=== PATIENT | male | born 1960 ===

== ENCOUNTER 2017-10-01 08:15 | Inpatient (IN) ==
[2017-10-01] MEDS ORDERED: GLUCAGON 1 MG VIAL IM PRN (10:06)
[2017-10-01] MEDS ORDERED: DEXTROSE 50% 25 GM/50 ML VIAL IV PRN (10:06)
[2017-10-01] MEDS ORDERED: ONDANSETRON 4 MG/2 ML VIAL IV PRN (10:06)
[2017-10-01] MEDS ORDERED: LACTULOSE 20 GM/30 ML UDCUP PO PRN (10:06)
[2017-10-01] MEDS ORDERED: DOCUSATE SODIUM 100 MG CAPSULE PO PRN (10:06)
[2017-10-01] MEDS ORDERED: ACETAMINOPHEN 325 MG TABLET PO PRN (10:06)
[2017-10-01 11:01] LABS: Basophils % 0.5 % (0.0-0.8); Eosinophils % 0.3 % (0.00-10.9); Hematocrit 42.4 VOL% (42.0-52.0); Hemoglobin 14.8 GM/DL (14.0-18.0); Immature Granulocytes % 0.3 %; Immature Granulocytes Absolute 0.01 #; Lymphocytes # 1.3 10*3/uL (1.4-4.0); Lymphocytes % 35.7 % (21.2-54.2); Mean Corpuscular HGB Conc 34.9 GM/DL (32-36); Mean Corpuscular Hemoglobin 31 PG (27-34); Mean Corpuscular Volume 88.7 FL (87-102); Mean Platelet Volume 9.3 FL (9.6-12.0); Monocytes # 0.8 10*3/uL (0.11-0.8); Neutrophils # 1.6 10*3/uL (1.4-7.4); Neutrophils % 43.2 % (38.7-73.9); Platelet Count 164 T/CUMM (130-400); Red Blood Count 4.78 MC/CUMM (3.8-5.5); Red Cell Distribution Width 12.8 % (9.3-17.3); White Blood Count 3.8 T/CUMM (4-12)
[2017-10-01 11:21] LABS: Calcium 7.7 MG/DL (8.5-10.1); Osmolality,Calculated 273.7 MOS/KG (273-304); Potassium 3.8 MMOL/L (3.5-5.1)
[2017-10-01] MEDS ORDERED: ENOXAPARIN 40 MG/0.4 ML SYRINGE SUBCUT SCH (12:00)
[2017-10-01 12:15] LABS: Hypochromasia 2+; Lymphocytes 30 % (20-55); Microcytosis 2+; Platelet Estimate Adequate; Segmented Neutrophils 50 % (50-85); Total Cells Counted 100
[2017-10-01] MEDS ORDERED: INFLUENZA VIRUS VACCINE 0.5 ML SYRINGE IM ONE (13:39)
[2017-10-01] MEDS: LEVOFLOXACIN INJ 750 MG in PREMIX 1 EACH IV SCH (15:27)
[2017-10-01] MEDS: INSULIN LISPRO 100 UNIT/ML SUBCUT SCH ×3 (15:28→20:45)
[2017-10-01] MEDS: PANTOPRAZOLE 40 MG TABLET PO SCH (16:55)
[2017-10-02 07:57] LABS: Basophils % 0.6 % (0.0-0.8); Eosinophils # 0.1 10*3/uL (0.0-0.87); Eosinophils % 1.6 % (0.00-10.9); Hemoglobin 14.7 GM/DL (14.0-18.0); Lymphocytes # 1.4 10*3/uL (1.4-4.0); Lymphocytes % 44.5 % (21.2-54.2); Mean Corpuscular HGB Conc 34.2 GM/DL (32-36); Mean Corpuscular Hemoglobin 31 PG (27-34); Mean Platelet Volume 10.2 FL (9.6-12.0); Monocytes # 0.6 10*3/uL (0.11-0.8); Monocytes % 19.2 % (1.7-12.7); Neutrophils # 1.1 10*3/uL (1.4-7.4); Neutrophils % 34.1 % (38.7-73.9); Platelet Count 156 T/CUMM (130-400); Red Blood Count 4.78 MC/CUMM (3.8-5.5); Red Cell Distribution Width 12.7 % (9.3-17.3); White Blood Count 3.2 T/CUMM (4-12)
[2017-10-02 08:28] LABS: Band Neutrophils 2 % (0-10); Hypochromasia Slight; Lymphocytes 33 % (20-55); Platelet Estimate Adequate; Segmented Neutrophils 61 % (50-85); Total Cells Counted 100
[2017-10-02 08:33] LABS: Osmolality,Calculated 274.7 MOS/KG (273-304); Potassium 3.8 MMOL/L (3.5-5.1)
[2017-10-02] MEDS: PANTOPRAZOLE 40 MG TABLET PO SCH (08:34)
[2017-10-02] MEDS: LEVOFLOXACIN INJ 750 MG in PREMIX 1 EACH IV SCH (08:34)
[2017-10-02] MEDS: INSULIN LISPRO 100 UNIT/ML SUBCUT SCH ×3 (08:34→16:45)
[2017-10-02 16:56] VITALS: BP 128/85
[2017-10-02] MEDS ORDERED: DOXYCYCLINE HYCLATE 100 MG CAPSULE PO SCH (21:00)
== END 2017-10-02 18:22 | disposition home or self-care (01) | DRG 195 ==
LOC: N.ED 08:15 → N.EDINP 10:05 → SUATTDRO 10:05 → N.2E 12:30
PROVIDERS: ADMIT Hospitalist; ATTEND Internal Medicine

== ENCOUNTER 2019-08-03 02:14 | Inpatient (IN) ==
[2019-08-03] MEDS ORDERED: SODIUM CHLORIDE 0.9% 1,000 ML IV STA (03:45)
[2019-08-03] MEDS ORDERED: PIPERACILLIN/TAZOBACTAM 3,375 MG in SODIUM CHLORIDE 0.9% 100 ML IV STA (04:25)
[2019-08-03] MEDS ORDERED: PIPERACILLIN/TAZOBACTAM 3,375 MG VIAL IV ONE (04:27)
[2019-08-03] MEDS ORDERED: GLUCAGON 1 MG VIAL IM PRN ×2 (05:49→05:52)
[2019-08-03] MEDS ORDERED: ONDANSETRON 4 MG/2 ML VIAL IV PRN (05:49)
[2019-08-03] MEDS ORDERED: DOCUSATE SODIUM 100 MG CAPSULE PO PRN (05:49)
[2019-08-03] MEDS ORDERED: DEXTROSE 50% 25 GM/50 ML VIAL IV PRN ×2 (05:49→05:52)
[2019-08-03] MEDS ORDERED: ALBUTEROL 2.5 MG/3 ML NEB RESP TX PRN (05:49)
[2019-08-03] MEDS ORDERED: ACETAMINOPHEN 325 MG TABLET PO PRN (05:49)
[2019-08-03] MEDS ORDERED: LORazepam 2 MG/1 ML VIAL IV PRN ×2 (05:55)
[2019-08-03 06:17] LABS: PT Patient Result 10.5 SECS (9.6-12.2)
[2019-08-03] MEDS ORDERED: hydrALAZINE 20 MG/1 ML VIAL IV PRN (06:17)
[2019-08-03 06:34] LABS: Basophils % 0.1 % (0.0-0.8); Hematocrit 41.7 VOL% (42.0-52.0); Hemoglobin 13.7 GM/DL (14.0-18.0); Immature Granulocytes % 0.6 %; Immature Granulocytes Absolute 0.07 #; Lymphocytes # 0.9 10*3/uL (1.4-4.0); Mean Corpuscular HGB Conc 32.9 GM/DL (32-36); Mean Corpuscular Volume 93.5 FL (87-102); Mean Platelet Volume 10.8 FL (9.6-12.0); Monocytes % 7.9 % (1.7-12.7); Neutrophils % 83.4 % (38.7-73.9); Platelet Count 130 T/CUMM (130-400); Red Blood Count 4.46 MC/CUMM (3.8-5.5); Red Cell Distribution Width 13.1 % (9.3-17.3); White Blood Count 10.9 T/CUMM (4-12)
[2019-08-03] MEDS: SODIUM CHLORIDE 0.9% 1,000 ML IV SCH ×2 (06:44→15:05)
[2019-08-03 06:45] LABS: Albumin 2.9 G/DL (3.4-5.0); Bilirubin,Total 1.4 MG/DL (0.2-1.0); Calcium 7.9 MG/DL (8.5-10.1); Osmolality,Calculated 283.1 MOS/KG (273-304); Total Protein 7.3 G/DL (6.4-8.3)
[2019-08-03 06:53] LABS: Band Neutrophils 8 % (0-10); Hypochromasia Slight; Lymphocytes 10 % (20-55); Segmented Neutrophils 76 % (50-85); Total Cells Counted 100
[2019-08-03 06:54] LABS: Microcytosis 1+; Platelet Estimate Adequate
[2019-08-03] MEDS: ALBUTEROL/IPRATROPIUM 3 ML NEB RESP TX SCH ×3 (07:18→19:00)
[2019-08-03] MEDS: INSULIN LISPRO 100 UNIT/ML SUBCUT SCH ×4 (08:30→21:13)
[2019-08-03] MEDS: MULTIVITAMIN (BEROCCA) TABLET PO SCH (08:42)
[2019-08-03] MEDS: ENOXAPARIN 40 MG/0.4 ML SYRINGE SUBCUT SCH (08:42)
[2019-08-03] MEDS: FOLIC ACID 1 MG TABLET PO SCH (08:42)
[2019-08-03] MEDS: THIAMINE 100 MG TABLET PO SCH (08:42)
[2019-08-03] MEDS: ASPIRIN EC 81 MG TABLET PO SCH (08:42)
[2019-08-03] MEDS ORDERED: MAGNESIUM SULF RIDER 4 GM in PREMIX 1 EACH IV ONE (11:00)
[2019-08-03] MEDS: AMPICILLIN/SULBACTAM 3,000 MG in SODIUM CHLORIDE 0.9% 100 ML IV SCH ×2 (11:45→17:08)
[2019-08-03] MEDS ORDERED: FUROSEMIDE 40 MG/4 ML VIAL IV ONE (16:29)
[2019-08-03] MEDS: METOPROLOL TARTRATE 25 MG TABLET PO SCH (21:07)
[2019-08-03] MEDS: SIMVASTATIN 10 MG TABLET PO SCH (21:07)
[2019-08-04] MEDS: ALBUTEROL/IPRATROPIUM 3 ML NEB RESP TX SCH ×4 (00:13→20:42)
[2019-08-04] MEDS: AMPICILLIN/SULBACTAM 3,000 MG in SODIUM CHLORIDE 0.9% 100 ML IV SCH ×4 (00:20→17:38)
[2019-08-04 04:16] LABS: Basophils % 0.3 % (0.0-0.8); Eosinophils # 0.1 10*3/uL (0.0-0.87); Eosinophils % 0.5 % (0.00-10.9); Hemoglobin 14.2 GM/DL (14.0-18.0); Immature Granulocytes % 0.6 %; Immature Granulocytes Absolute 0.08 #; Lymphocytes # 1.4 10*3/uL (1.4-4.0); Lymphocytes % 10.2 % (21.2-54.2); Mean Corpuscular Volume 93.1 FL (87-102); Mean Platelet Volume 9.7 FL (9.6-12.0); Monocytes % 7.5 % (1.7-12.7); Neutrophils % 80.9 % (38.7-73.9); Platelet Count 172 T/CUMM (130-400); Red Blood Count 4.62 MC/CUMM (3.8-5.5); White Blood Count 13.2 T/CUMM (4-12)
[2019-08-04 04:22] LABS: Calcium 8.3 MG/DL (8.5-10.1); Osmolality,Calculated 275.8 MOS/KG (273-304)
[2019-08-04] MEDS: INSULIN LISPRO 100 UNIT/ML SUBCUT SCH ×4 (07:41→22:01)
[2019-08-04] MEDS: MULTIVITAMIN (BEROCCA) TABLET PO SCH (08:10)
[2019-08-04] MEDS: ASPIRIN EC 81 MG TABLET PO SCH (08:10)
[2019-08-04] MEDS: THIAMINE 100 MG TABLET PO SCH (08:11)
[2019-08-04] MEDS: ENOXAPARIN 40 MG/0.4 ML SYRINGE SUBCUT SCH (08:11)
[2019-08-04] MEDS: FOLIC ACID 1 MG TABLET PO SCH (08:11)
[2019-08-04] MEDS: METOPROLOL TARTRATE 25 MG TABLET PO SCH ×2 (08:11→22:00)
[2019-08-04] MEDS ORDERED: MAGNESIUM SULF RIDER 2 GM in PREMIX 1 EACH IV ONE (15:55)
[2019-08-04] MEDS: predniSONE 20 MG TABLET PO SCH (16:30)
[2019-08-04] MEDS ORDERED: FUROSEMIDE 40 MG/4 ML VIAL IV ONE (16:54)
[2019-08-04] MEDS: SIMVASTATIN 10 MG TABLET PO SCH (22:00)
[2019-08-05] MEDS: AMPICILLIN/SULBACTAM 3,000 MG in SODIUM CHLORIDE 0.9% 100 ML IV SCH ×4 (00:51→18:38)
[2019-08-05] MEDS: ALBUTEROL/IPRATROPIUM 3 ML NEB RESP TX SCH ×4 (01:22→19:26)
[2019-08-05 03:58] LABS: ABG Base Excess 4.9 MMOL/L (-2.5-2.5); ABG Oxygen Saturation 93.7 % (95-100); ABG PCO2 57.1 MM HG (35-48); ABG PH 7.366 (7.35-7.45); ABG PO2 70.8 MM HG (80-95); ABG TCO2 33.7 MMOL/L (23-27); Allen Test Positive; Pt O2 Delivery Device Other
[2019-08-05 04:28] LABS: Basophils % 0.2 % (0.0-0.8); Hematocrit 42.3 VOL% (42.0-52.0); Immature Granulocytes % 0.6 %; Immature Granulocytes Absolute 0.08 #; Lymphocytes # 0.9 10*3/uL (1.4-4.0); Lymphocytes % 7.3 % (21.2-54.2); Mean Corpuscular HGB Conc 33.1 GM/DL (32-36); Mean Corpuscular Volume 93.2 FL (87-102); Mean Platelet Volume 10.1 FL (9.6-12.0); Neutrophils % 84.9 % (38.7-73.9); Platelet Count 162 T/CUMM (130-400); Red Blood Count 4.54 MC/CUMM (3.8-5.5); Red Cell Distribution Width 12.6 % (9.3-17.3); White Blood Count 12.4 T/CUMM (4-12)
[2019-08-05 04:45] LABS: Calcium 7.8 MG/DL (8.5-10.1); Osmolality,Calculated 277.8 MOS/KG (273-304)
[2019-08-05] MEDS: INSULIN LISPRO 100 UNIT/ML SUBCUT SCH ×4 (09:11→21:41)
[2019-08-05] MEDS: ASPIRIN EC 81 MG TABLET PO SCH (09:11)
[2019-08-05] MEDS: METOPROLOL TARTRATE 25 MG TABLET PO SCH ×2 (09:12→21:41)
[2019-08-05] MEDS: FOLIC ACID 1 MG TABLET PO SCH (09:12)
[2019-08-05] MEDS: MULTIVITAMIN (BEROCCA) TABLET PO SCH (09:12)
[2019-08-05] MEDS: ENOXAPARIN 40 MG/0.4 ML SYRINGE SUBCUT SCH (09:13)
[2019-08-05] MEDS: THIAMINE 100 MG TABLET PO SCH (09:13)
[2019-08-05] MEDS: predniSONE 20 MG TABLET PO SCH (09:13)
[2019-08-05] MEDS: SIMVASTATIN 10 MG TABLET PO SCH (21:41)
[2019-08-06] MEDS: ALBUTEROL/IPRATROPIUM 3 ML NEB RESP TX SCH ×4 (01:13→20:12)
[2019-08-06] MEDS: AMPICILLIN/SULBACTAM 3,000 MG in SODIUM CHLORIDE 0.9% 100 ML IV SCH ×5 (01:25→23:16)
[2019-08-06 03:23] LABS: ABG Base Excess 7.2 MMOL/L (-2.5-2.5); ABG HCO3 34.1 MMOL/L (20-26); ABG Oxygen Saturation 93.1 % (95-100); ABG PCO2 57.5 MM HG (35-48); ABG PH 7.391 (7.35-7.45); ABG PO2 67.9 MM HG (80-95); ABG TCO2 35.9 MMOL/L (23-27); Allen Test Positive; Pt O2 Delivery Device Other
[2019-08-06 04:30] LABS: Basophils % 0.1 % (0.0-0.8); Eosinophils # 0.1 10*3/uL (0.0-0.87); Eosinophils % 0.4 % (0.00-10.9); Hemoglobin 13.7 GM/DL (14.0-18.0); Immature Granulocytes % 0.8 %; Immature Granulocytes Absolute 0.11 #; Lymphocytes # 2.6 10*3/uL (1.4-4.0); Lymphocytes % 18.3 % (21.2-54.2); Mean Corpuscular HGB Conc 33.4 GM/DL (32-36); Mean Corpuscular Volume 92.3 FL (87-102); Mean Platelet Volume 10.4 FL (9.6-12.0); Monocytes % 9.6 % (1.7-12.7); Neutrophils % 70.8 % (38.7-73.9); Platelet Count 175 T/CUMM (130-400); Red Blood Count 4.44 MC/CUMM (3.8-5.5); Red Cell Distribution Width 12.4 % (9.3-17.3); White Blood Count 13.9 T/CUMM (4-12)
[2019-08-06] MEDS: INSULIN LISPRO 100 UNIT/ML SUBCUT SCH ×4 (08:32→20:47)
[2019-08-06] MEDS: MULTIVITAMIN (BEROCCA) TABLET PO SCH (09:31)
[2019-08-06] MEDS: ASPIRIN EC 81 MG TABLET PO SCH (09:31)
[2019-08-06] MEDS: THIAMINE 100 MG TABLET PO SCH (09:32)
[2019-08-06] MEDS: METOPROLOL TARTRATE 25 MG TABLET PO SCH ×2 (09:32→20:47)
[2019-08-06] MEDS: FOLIC ACID 1 MG TABLET PO SCH (09:32)
[2019-08-06] MEDS: predniSONE 20 MG TABLET PO SCH (09:32)
[2019-08-06] MEDS: ENOXAPARIN 40 MG/0.4 ML SYRINGE SUBCUT SCH (09:33)
[2019-08-06] MEDS: FUROSEMIDE 40 MG/4 ML VIAL IV SCH (12:58)
[2019-08-06] MEDS: SIMVASTATIN 10 MG TABLET PO SCH (20:47)
[2019-08-07] MEDS: ALBUTEROL/IPRATROPIUM 3 ML NEB RESP TX SCH ×4 (02:16→19:30)
[2019-08-07 04:15] LABS: ABG Base Excess 1.8 MMOL/L (-2.5-2.5); ABG HCO3 25.7 MMOL/L (20-26); ABG Oxygen Saturation 85.6 % (95-100); ABG PCO2 46.4 MM HG (35-48); ABG PH 7.382 (7.35-7.45); ABG PO2 52.7 MM HG (80-95); ABG TCO2 23.9 MMOL/L (23-27); Allen Test Positive
[2019-08-07] MEDS: AMPICILLIN/SULBACTAM 3,000 MG in SODIUM CHLORIDE 0.9% 100 ML IV SCH ×3 (06:18→17:00)
[2019-08-07 06:25] LABS: Basophils % 0.2 % (0.0-0.8); Eosinophils # 0.1 10*3/uL (0.0-0.87); Hematocrit 42.5 VOL% (42.0-52.0); Hemoglobin 14.1 GM/DL (14.0-18.0); Immature Granulocytes % 1.2 %; Immature Granulocytes Absolute 0.13 #; Lymphocytes # 1.9 10*3/uL (1.4-4.0); Lymphocytes % 17.8 % (21.2-54.2); Mean Corpuscular HGB Conc 33.2 GM/DL (32-36); Mean Corpuscular Volume 92.6 FL (87-102); Mean Platelet Volume 10.4 FL (9.6-12.0); Monocytes % 10.2 % (1.7-12.7); Neutrophils % 69.6 % (38.7-73.9); Platelet Count 190 T/CUMM (130-400); Red Blood Count 4.59 MC/CUMM (3.8-5.5); Red Cell Distribution Width 12.6 % (9.3-17.3); White Blood Count 10.8 T/CUMM (4-12)
[2019-08-07] MEDS: INSULIN LISPRO 100 UNIT/ML SUBCUT SCH ×4 (08:44→21:03)
[2019-08-07] MEDS: FOLIC ACID 1 MG TABLET PO SCH (10:01)
[2019-08-07] MEDS: predniSONE 20 MG TABLET PO SCH (10:01)
[2019-08-07] MEDS: ASPIRIN EC 81 MG TABLET PO SCH (10:01)
[2019-08-07] MEDS: THIAMINE 100 MG TABLET PO SCH (10:02)
[2019-08-07] MEDS: METOPROLOL TARTRATE 25 MG TABLET PO SCH ×2 (10:02→21:04)
[2019-08-07] MEDS: MULTIVITAMIN (BEROCCA) TABLET PO SCH (10:02)
[2019-08-07] MEDS: FUROSEMIDE 40 MG/4 ML VIAL IV SCH (10:02)
[2019-08-07] MEDS: ENOXAPARIN 40 MG/0.4 ML SYRINGE SUBCUT SCH (10:07)
[2019-08-07] MEDS: SIMVASTATIN 10 MG TABLET PO SCH (21:04)
[2019-08-08] MEDS: AMPICILLIN/SULBACTAM 3,000 MG in SODIUM CHLORIDE 0.9% 100 ML IV SCH ×5 (00:26→23:50)
[2019-08-08] MEDS: ALBUTEROL/IPRATROPIUM 3 ML NEB RESP TX SCH ×4 (01:50→20:12)
[2019-08-08 05:59] LABS: Basophils % 0.4 % (0.0-0.8); Eosinophils # 0.1 10*3/uL (0.0-0.87); Eosinophils % 1.3 % (0.00-10.9); Hematocrit 40.8 VOL% (42.0-52.0); Hemoglobin 13.5 GM/DL (14.0-18.0); Immature Granulocytes % 1.9 %; Immature Granulocytes Absolute 0.18 #; Lymphocytes # 2.2 10*3/uL (1.4-4.0); Lymphocytes % 23.9 % (21.2-54.2); Mean Corpuscular HGB Conc 33.1 GM/DL (32-36); Mean Corpuscular Volume 92.7 FL (87-102); Mean Platelet Volume 10.4 FL (9.6-12.0); Monocytes % 12.2 % (1.7-12.7); Neutrophils % 60.3 % (38.7-73.9); Platelet Count 213 T/CUMM (130-400); Red Cell Distribution Width 12.5 % (9.3-17.3); White Blood Count 9.3 T/CUMM (4-12)
[2019-08-08 06:27] LABS: Calcium 8.6 MG/DL (8.5-10.1); Osmolality,Calculated 276.5 MOS/KG (273-304)
[2019-08-08 06:32] LABS: Band Neutrophils 3 % (0-10); Lymphocytes 19 % (20-55); Myelocytes 1 %; Segmented Neutrophils 68 % (50-85)
[2019-08-08 06:33] LABS: Platelet Estimate Normal; Total Cells Counted 100
[2019-08-08] MEDS: INSULIN LISPRO 100 UNIT/ML SUBCUT SCH ×4 (08:20→20:48)
[2019-08-08] MEDS: FUROSEMIDE 40 MG/4 ML VIAL IV SCH (08:57)
[2019-08-08] MEDS: ASPIRIN EC 81 MG TABLET PO SCH (09:00)
[2019-08-08] MEDS: MULTIVITAMIN (BEROCCA) TABLET PO SCH (09:00)
[2019-08-08] MEDS: METOPROLOL TARTRATE 25 MG TABLET PO SCH ×2 (09:00→20:49)
[2019-08-08] MEDS: ENOXAPARIN 40 MG/0.4 ML SYRINGE SUBCUT SCH (09:00)
[2019-08-08] MEDS: FOLIC ACID 1 MG TABLET PO SCH (09:00)
[2019-08-08] MEDS: THIAMINE 100 MG TABLET PO SCH (09:00)
[2019-08-08] MEDS: predniSONE 20 MG TABLET PO SCH (09:00)
[2019-08-08] MEDS: SIMVASTATIN 10 MG TABLET PO SCH (20:49)
[2019-08-09] MEDS: ALBUTEROL/IPRATROPIUM 3 ML NEB RESP TX SCH ×4 (02:39→19:26)
[2019-08-09] MEDS: AMPICILLIN/SULBACTAM 3,000 MG in SODIUM CHLORIDE 0.9% 100 ML IV SCH ×3 (05:31→17:07)
[2019-08-09] MEDS: FUROSEMIDE 40 MG/4 ML VIAL IV SCH (09:22)
[2019-08-09] MEDS: INSULIN LISPRO 100 UNIT/ML SUBCUT SCH ×4 (09:22→21:50)
[2019-08-09] MEDS: MULTIVITAMIN (BEROCCA) TABLET PO SCH (09:23)
[2019-08-09] MEDS: predniSONE 20 MG TABLET PO SCH (09:23)
[2019-08-09] MEDS: METOPROLOL TARTRATE 25 MG TABLET PO SCH ×2 (09:23→21:50)
[2019-08-09] MEDS: THIAMINE 100 MG TABLET PO SCH (09:23)
[2019-08-09] MEDS: ASPIRIN EC 81 MG TABLET PO SCH (09:23)
[2019-08-09] MEDS: FOLIC ACID 1 MG TABLET PO SCH (09:23)
[2019-08-09] MEDS: ENOXAPARIN 40 MG/0.4 ML SYRINGE SUBCUT SCH (09:24)
[2019-08-09] MEDS: SIMVASTATIN 10 MG TABLET PO SCH (21:50)
[2019-08-10] MEDS: AMPICILLIN/SULBACTAM 3,000 MG in SODIUM CHLORIDE 0.9% 100 ML IV SCH ×4 (00:28→17:30)
[2019-08-10] MEDS: ALBUTEROL/IPRATROPIUM 3 ML NEB RESP TX SCH ×4 (00:52→19:44)
[2019-08-10] MEDS ORDERED: POTASSIUM CHLORIDE 20 MEQ TABLET PO PRN (03:54)
[2019-08-10 05:54] LABS: Basophils % 0.2 % (0.0-0.8); Eosinophils # 0.2 10*3/uL (0.0-0.87); Eosinophils % 1.6 % (0.00-10.9); Hematocrit 40.3 VOL% (42.0-52.0); Hemoglobin 13.5 GM/DL (14.0-18.0); Immature Granulocytes % 1.4 %; Immature Granulocytes Absolute 0.13 #; Lymphocytes # 2.8 10*3/uL (1.4-4.0); Lymphocytes % 29.5 % (21.2-54.2); Mean Corpuscular HGB Conc 33.5 GM/DL (32-36); Mean Corpuscular Volume 92.4 FL (87-102); Mean Platelet Volume 9.4 FL (9.6-12.0); Monocytes % 8.9 % (1.7-12.7); Neutrophils % 58.4 % (38.7-73.9); Platelet Count 216 T/CUMM (130-400); Red Blood Count 4.36 MC/CUMM (3.8-5.5); Red Cell Distribution Width 12.6 % (9.3-17.3); White Blood Count 9.6 T/CUMM (4-12)
[2019-08-10 06:27] LABS: Calcium 8.3 MG/DL (8.5-10.1); Osmolality,Calculated 283.3 MOS/KG (273-304)
[2019-08-10] MEDS: FUROSEMIDE 40 MG/4 ML VIAL IV SCH (09:51)
[2019-08-10] MEDS: ASPIRIN EC 81 MG TABLET PO SCH (11:46)
[2019-08-10] MEDS: MULTIVITAMIN (BEROCCA) TABLET PO SCH (11:46)
[2019-08-10] MEDS: THIAMINE 100 MG TABLET PO SCH (11:47)
[2019-08-10] MEDS: METOPROLOL TARTRATE 25 MG TABLET PO SCH ×2 (11:47→22:04)
[2019-08-10] MEDS: FOLIC ACID 1 MG TABLET PO SCH (11:47)
[2019-08-10] MEDS: predniSONE 20 MG TABLET PO SCH (11:49)
[2019-08-10] MEDS: ENOXAPARIN 40 MG/0.4 ML SYRINGE SUBCUT SCH (11:49)
[2019-08-10] MEDS: INSULIN LISPRO 100 UNIT/ML SUBCUT SCH ×4 (11:54→22:04)
[2019-08-10] MEDS: SIMVASTATIN 10 MG TABLET PO SCH (22:04)
[2019-08-11] MEDS: ALBUTEROL/IPRATROPIUM 3 ML NEB RESP TX SCH ×3 (00:19→12:06)
[2019-08-11 07:47] VITALS: BP 130/71
[2019-08-11] MEDS: FUROSEMIDE 40 MG/4 ML VIAL IV SCH (09:52)
[2019-08-11] MEDS: FOLIC ACID 1 MG TABLET PO SCH (09:54)
[2019-08-11] MEDS: INSULIN LISPRO 100 UNIT/ML SUBCUT SCH (09:54)
[2019-08-11] MEDS: ASPIRIN EC 81 MG TABLET PO SCH (09:54)
[2019-08-11] MEDS: METOPROLOL TARTRATE 25 MG TABLET PO SCH (09:54)
[2019-08-11] MEDS: predniSONE 20 MG TABLET PO SCH (09:54)
[2019-08-11] MEDS: MULTIVITAMIN (BEROCCA) TABLET PO SCH (09:54)
[2019-08-11] MEDS: THIAMINE 100 MG TABLET PO SCH (09:54)
[2019-08-11] MEDS: ENOXAPARIN 40 MG/0.4 ML SYRINGE SUBCUT SCH (09:57)
== END 2019-08-11 12:29 | disposition home or self-care (01) | DRG 871 ==
LOC: EDUNIT# → EDBD → N.ED 02:14 → SUATTDRO 05:28 → N.EDINP 05:28 → N.ICU 05:42 → N.5E 08-06 19:16
PROVIDERS: ADMIT Family Medicine; ATTEND Internal Medicine